=== PATIENT | female | born 1935 | race Hispanic/Latino ===

== ENCOUNTER 2017-03-24 11:35 | Inpatient (IN) | payer MEDICARE, OTHER ==
[2017-03-24 11:37] VITALS: BMI 23.4
--- NOTE | 2017-03-24 12:53 | ED PDOC ---
HPI: Trauma/Fall - HPI Time Seen by Provider: 03/24/17 11:51 Chief Complaint (Nursing): Trauma Chief Complaint (Provider): Trauma History Per: Patient History/Exam Limitations: no limitations Onset/Duration Of Symptoms: Days (x3) Additional Complaint(s): Kami Peters, 82 year old female presents to the ED after experiencing a fall 3 days prior to arrival. The patient states she got herself into the tub to take a bath then fell, being unable to get herself out. Since then she has been sitting in the tub for 3 days, and reports drinking water from the tub. She denies head trauma, neck pain, chest pain, shortness of breath, extremity pain, numbness or tingling, weakness, or any similar experiences in the past. She reports feeling mildly achy with nothing making it better or worse. Of note, the patient lives alone. PMD: Non H Provider Past Medical History Reviewed: Historical Data, Nursing Documentation, Vital Signs Vital Signs: Last Vital Signs Temp 97 F L 03/24/17 11:36 Pulse 93 H 03/24/17 11:36 Resp 18 03/24/17 11:52 BP 118/73 03/24/17 11:36 Pulse Ox 100 03/24/17 11:52 - Medical History Other PMH: uterine ca - Family History Family History: States: Unknown Family Hx - Social History Current smoker - smoking cessation education provided: No Ex-Smoker (has not smoked in the last 12 months): No Alcohol: None Drugs: Denies - Allergies Allergies/Adverse Reactions: Allergies Allergy/AdvReac Type Severity Reaction Status Date / Time No Known Allergies Allergy Verified 03/24/17 12:17 Review of Systems ROS Statement: Except As Marked, All Systems Reviewed And Found Negative Cardiovascular: Negative for: Chest Pain Respiratory: Negative for: Shortness of Breath Musculoskeletal: Positive for: Other (mildly achy feeling). Negative for: Neck Pain, Arm Pain, Leg Pain Neurological: Negative for: Weakness, Numbness (and no tingling ) Physical Exam - Reviewed Nursing Documentation Reviewed: Yes Vital Signs Reviewed: Yes - Physical Exam Appears: Positive for: No Acute Distress, Uncomfortable Head Exam: Positive for: ATRAUMATIC, NORMAL INSPECTION, NORMOCEPHALIC Eye Exam: Positive for: Normal appearance (white sclera), EOMI, PERRL Neck: Positive for: Normal, Supple (and nontender) Cardiovascular/Chest: Positive for: Regular Rate, Rhythm Respiratory: Positive for: Normal Breath Sounds (clear to auscultation bilaterally) Pelvic Exam: Positive for: External Exam Normal (pelvic stable/hips normal ) Back: Positive for: Other (back revealed multiple healing bruises ). Negative for: L CVA Tenderness, R CVA Tenderness, Vertebral Tenderness Neurologic/Psych: Positive for: Alert, discharge specialist II-XII (intact), Oriented, Cerebellar Tests (intact). Negative for: Motor/Sensory Deficits - Laboratory Results Result Diagrams: 03/24/17 13:05 03/24/17 13:05 - ECG ECG Rhythm: Positive for: Sinus Rhythm (normal), Premature Ventricular Contraction (occasional). Negative for: ST/T Changes Interpretation Of ECG: No evidence of ischemia Rate: 98 O2 Sat by Pulse Oximetry: 100 (RA) Pulse Ox Interpretation: Normal - Radiology X-Ray: Interpreted by Hi X-Ray Interpretation: No Acute Disease - Progress ED Course And Treament: elevted ck, given iv fluids no other signs of infection will admit to ms per Dr pederson, Re-evaluation Time: 14:00 Condition: Improved Medical Decision Making Medical Decision Making: Impression: Fall Plan: * ED EKG * COMP Metabolic panel * CBC (With Differential) * Partial Thromboplastin Time [COAG] * Prothrombin Time [COAG] * Sodium Chloride 0.9% 500 ml IV 500 mls/hr * Sodium Chloride 0.9% 1,000 ml IV 200 mls/hr * Urinalysis Stat * Chest One View [RAD] Stat * Reevaluation Chest X-Ray: FINDINGS: LUNGS: Clear. PLEURA: No pneumothorax or pleural fluid seen. CARDIOVASCULAR: No radiographic findings to suggest acute or significant cardiovascular disease. OSSEOUS STRUCTURES: No significant abnormalities. VISUALIZED UPPER ABDOMEN: Normal. OTHER FINDINGS: None. IMPRESSION: No active disease. Scribe Attestation: Documented by Chitra Schofield, acting as a scribe for Jaime Peck MD. Provider Scribe Attestation: All medical record entries made by the Scribe were at my direction and personally dictated by me. I have reviewed the chart and agree that the record accurately reflects my personal performance of the history, physical exam, medical decision making, and the department course for this patient. I have also personally directed, reviewed, and agree with the discharge instructions and disposition. Disposition - Clinical Impression Clinical Impression: Rhabdomyolysis - Patient ED Disposition Is Patient to be Admitted: No Counseled Patient/Family Regarding: Studies Performed, Diagnosis, Need For Followup - Disposition Disposition: Routine/Home Disposition Time: 16:02 Condition: GOOD - Pt Status Changed To: Hospital Disposition Of: Inpatient - Admit Certification Admit to Inpatient:: After my assessment, the patient will require hospitalization for at least two midnights. This is because of the severity of symptoms shown, intensity of services needed, and/or the medical risk in this patient being treated as an outpatient. - POA Present On Arrival: None
[2017-03-24] MEDS ORDERED: Sodium Chloride 0.9% 500 ML IV ONE (12:56)
[2017-03-24] MEDS ORDERED: Sodium Chloride 0.9% 1,000 ML IV SCH (13:00)
[2017-03-24 13:15] LABS: BASO % 0.7 % (0.0-2.0); EOS % 0.6 % (0.0-4.0); HEMATOCRIT 40.8 % (34.0-47.0); LYMPH # 0.8 K/uL (1.0-4.3); LYMPH % 20.7 % (20.0-40.0); MEAN CELL VOLUME 87.6 fl (81.0-99.0); MEAN CORPUSCULAR HEMOGLOBIN 28.5 pg (27.0-31.0); MEAN CORPUSCULAR HGB CONC 32.6 g/dL (33.0-37.0); MONO # 0.4 K/uL (0.0-0.8); MONO % 10.8 % (0.0-10.0); NEUT # 2.5 K/uL (1.8-7.0); NEUT % 67.2 % (50.0-75.0); NRBC % 0.2 % (0.0-0.0); RED CELL DISTRIBUTION WIDTH 21.1 % (11.5-14.5); WHITE BLOOD COUNT 3.7 K/uL (4.8-10.8)
[2017-03-24 13:29] LABS: ALB/GLOB RATIO 1.4 (1.0-2.1); CALCIUM 10.6 mg/dL (8.4-10.2); POTASSIUM 3.4 MMOL/L (3.6-5.0); TOTAL PROTEIN 7.4 G/DL (6.3-8.2)
[2017-03-24 13:56] LABS: PARTIAL THROMBOPLASTIN TIME 28.4 Seconds (25.6-37.1)
--- NOTE | 2017-03-24 14:27 | RAD ---
PROCEDURE: CHEST RADIOGRAPH, 1 VIEW. Portable study 13:20. HISTORY: trauma COMPARISON: None available. FINDINGS: LUNGS: Clear. PLEURA: No pneumothorax or pleural fluid seen. CARDIOVASCULAR: No radiographic findings to suggest acute or significant cardiovascular disease. OSSEOUS STRUCTURES: No significant abnormalities. VISUALIZED UPPER ABDOMEN: Normal. OTHER FINDINGS: None. IMPRESSION: No active disease. Concordant results with the preliminary interpretation rendered by the emergency department physician procedure.
[2017-03-24] MEDS: Sodium Chloride 0.9% 1,000 ML IV SCH ×3 (14:31→21:25)
[2017-03-24 17:29] LABS: RBC URINE 5 /hpf (0-3); URINE BACTERIA RARE (<OCC); URINE BILIRUBIN NEGATIVE (NEGATIVE); URINE BLOOD SMALL (NEGATIVE); URINE COLOR AMBER (YELLOW); URINE GLUCOSE (UA) NEG (Normal); URINE KETONE 20 mg/dL (NEGATIVE); URINE LEUKOCYTE ESTERASE TRACE Leu/uL (Negative); URINE PROTEIN >=500 mg/dL (NEGATIVE); URINE UROBILINOGEN 0.2-1.0 mg/dL (0.2-1.0); WBC URINE 17 /hpf (0-5)
[2017-03-24] MEDS ORDERED: Potassium Chloride 20 mEq ER Tab PO ONE (17:37)
[2017-03-25] MEDS: Sodium Chloride 0.9% 1,000 ML IV SCH ×5 (04:00→16:15)
[2017-03-25] MEDS: Multivitamin With Minerals Tab PO SCH (08:37)
[2017-03-25 11:24] LABS: MEAN CELL VOLUME 87.7 fl (81.0-99.0); MEAN CORPUSCULAR HEMOGLOBIN 28.7 pg (27.0-31.0); MEAN CORPUSCULAR HGB CONC 32.7 g/dL (33.0-37.0); RED CELL DISTRIBUTION WIDTH 20.9 % (11.5-14.5); WHITE BLOOD COUNT 2.8 K/uL (4.8-10.8)
[2017-03-25 11:35] LABS: CALCIUM 9.2 mg/dL (8.4-10.2); POTASSIUM 3.2 MMOL/L (3.6-5.0)
[2017-03-25] MEDS ORDERED: Potassium Chloride 20 mEq ER Tab PO ONE ×3 (12:15→12:35)
[2017-03-25] MEDS: Potassium Chl 40 mEq in D5-NS 1,000 ML IV SCH (13:51)
--- NOTE | 2017-03-25 16:18 | CP.PCM.CON ---
Addendum entered and electronically signed by China Dong MD 03/25/17 16:39 : PE: BOTTOM IRONER: AAOx3 Cranial nerves intact. Motor: 4/5 upper and lower extremities b/ l. Sensation intact. DTR: 2+ b/l upper and lower extremity. Original Note: <China Dong - Last Filed: 03/25/17 16:31> History of Present Illness - History of Present Illness History of Present Illness: Neurology Consult for Dr. Wong 82 YO F w/ PMH of Uterine CA was seen at bedside with her son. As per patient she was in the bathtub on friday taking a shower, and when she tried to get out of the tub, she was unable to do so. After trying to get out of the tub, patient states she got tired and ended up sitting down in the tub because she was tired. Denies blacking out, having chest pain, SOB, dizziness, hitting her head or neck. As per patient she was laying in the tub untill Friday when she was found by a friend. Patient states she was drinking water out of the tub, because she was thirsty. - Patient was diagnosed with Uterine cancer last year and was scheduled for her 3rd treatment of chemo today. at [facility]. - As per the son the patient is back to her baseline. She ambulates at home without any cane or walker and lives alone. Review of Systems - Review of Systems All systems: reviewed and no additional remarkable complaints except Past Patient History - Past Medical History & Family History Past Medical History?: Yes - Past Social History Smoking Status: Never Smoked - CARDIAC Hx Cardiac Disorders: Yes Hx Hypercholesterolemia: Yes Hx Hypertension: Yes - PULMONARY Hx Respiratory Disorders: No - NEUROLOGICAL Hx Neurological Disorder: No - HEENT Hx HEENT Problems: No - RENAL Hx Chronic Kidney Disease: No - ENDOCRINE/METABOLIC Hx Endocrine Disorders: No - HEMATOLOGICAL/ONCOLOGICAL Hx Cancer: Yes (uterine) - INTEGUMENTARY Hx Dermatological Problems: No - MUSCULOSKELETAL/RHEUMATOLOGICAL Hx Musculoskeletal Disorders: No Hx Falls: No (patient denies) - GASTROINTESTINAL Hx Gastrointestinal Disorders: No - GENITOURINARY/GYNECOLOGICAL Hx Genitourinary Disorders: Yes Hx Uterine Cancer: Yes - PSYCHIATRIC Hx Psychophysiologic Disorder: No Hx Substance Use: No - SURGICAL HISTORY Hx Surgeries: No - ANESTHESIA Hx Anesthesia: No Hx Anesthesia Reactions: No Hx Malignant Hyperthermia: No Has any member of the family had a problem w/ anesthesia?: No Meds Allergies/Adverse Reactions: Allergies Allergy/AdvReac Type Severity Reaction Status Date / Time No Known Allergies Allergy Verified 03/24/17 12:17 - Medications Medications: Current Medications Atorvastatin Calcium (Lipitor) 10 mg PO DAILY@2100 [facility] Last Admin: 03/24/17 20:49 Dose: 10 mg Sodium Chloride (Sodium Chloride 0.9%) 1,000 mls @ 100 mls/hr IV .Q10H [facility] Stop: 03/25/17 18:41 Last Admin: 03/25/17 05:28 Dose: Not Given Potassium Chloride/Dextrose/Sod Cl (D5-Ns1l+40meq Kcl) 1,000 mls @ 100 mls/hr IV .Q10H [facility] Stop: 03/26/17 11:48 Last Admin: 03/25/17 13:51 Dose: 100 mls/hr Ibuprofen (Motrin Oral Susp) 200 mg PO BID PRN PRN Reason: Pain, moderate (4-7) Lisinopril (Zestril) 10 mg PO DAILY [facility] Last Admin: 03/25/17 08:37 Dose: 10 mg Multivitamins/Minerals (Therapeutic-M Tab) 1 tab PO DAILY [facility] Last Admin: 03/25/17 08:37 Dose: 1 tab Potassium Chloride (K-Dur 20 Meq Er Tab) 20 meq PO DAILY [facility] Physical Exam - Constitutional Appears: No Acute Distress - Head Exam Head Exam: ATRAUMATIC, NORMAL INSPECTION, NORMOCEPHALIC - Eye Exam Eye Exam: EOMI, PERRL Pupil Exam: NORMAL ACCOMODATION, PERRL - Respiratory Exam Respiratory Exam: Clear to Auscultation Bilateral, NORMAL BREATHING PATTERN. absent: Rhonchi, Wheezes - Cardiovascular Exam Cardiovascular Exam: REGULAR RHYTHM, +S1, +S2 - GI/Abdominal Exam GI & Abdominal Exam: Normal Bowel Sounds, Soft. absent: Tenderness - Extremities Exam Extremities exam: Positive for: normal inspection. Negative for: calf tenderness - Neurological Exam Neurological exam: Alert, CN II-XII Intact, Oriented x3, Reflexes Normal - Skin Additional comments: multiple bruises noted on forearms Results - Vital Signs Recent Vital Signs: Last Vital Signs Temp 98.6 F 03/25/17 00:26 Pulse 82 03/25/17 08:37 Resp 18 03/25/17 00:26 BP 157/90 H 03/25/17 08:37 Pulse Ox 97 03/25/17 00:26 - Labs Result Diagrams: 03/25/17 11:00 03/25/17 11:00 Labs: Laboratory Results - last 24 hr 03/24/17 03/25/17 03/25/17 17:06 06:45 11:00 WBC 2.8 L RBC 4.11 Hgb 11.8 L Hct 36.0 MCV 87.7 MCH 28.7 MCHC 32.7 L RDW 20.9 H Plt Count 103 L Sodium Potassium Chloride Carbon Dioxide Anion Gap BUN Creatinine Est GFR ( Amer) Est GFR (Non-Af Amer) Random Glucose Calcium Total Creatine Kinase 360 H Urine Color [place] Urine Clarity Cloudy Urine pH 6.0 Ur Specific [place] 1.025 Urine Protein >=500 Urine Glucose (UA) Neg Urine Ketones 20 Urine Blood Small Urine Nitrate Negative Urine Bilirubin Negative Urine Urobilinogen 0.2-1.0 Ur Leukocyte Esterase Trace Urine RBC (Auto) 5 H Urine Microscopic WBC 17 H Ur Squamous Epith Cells 4 Urine Bacteria Rare 03/25/17 11:00 WBC RBC Hgb Hct MCV MCH MCHC RDW Plt Count Sodium 140 Potassium 3.2 L Chloride 107 Carbon Dioxide 27 Anion Gap 9 L BUN 25 H Creatinine 1.2 Est GFR ( Amer) 52 Est GFR (Non-Af Amer) 43 Random Glucose 84 Calcium 9.2 Total Creatine Kinase Urine Color Urine Clarity Urine pH Ur Specific [place] Urine Protein Urine Glucose (UA) Urine Ketones Urine Blood Urine Nitrate Urine Bilirubin Urine Urobilinogen Ur Leukocyte Esterase Urine RBC (Auto) Urine Microscopic WBC Ur Squamous Epith Cells Urine Bacteria Assessment & Plan - Assessment and Plan (Free Text) Assessment: 82 YO F w/ PMH of Uterine CA was admitted after being found in her tub unable to get out for 3 days. 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 Continue with current management. Pt is cleared as per neurology case has been seen and discussed with Dr. Wong. Thank your for this interesting consult. <Ramses Wong - Last Filed: 03/26/17 10:20> Meds - Medications Medications: Current Medications Atorvastatin Calcium (Lipitor) 10 mg PO DAILY@2100 [facility] Last Admin: 03/25/17 21:04 Dose: 10 mg Potassium Chloride/Dextrose/Sod Cl (D5-Ns1l+40meq Kcl) 1,000 mls @ 100 mls/hr IV .Q10H [facility] Stop: 03/26/17 11:48 Last Admin: 03/26/17 05:55 Dose: 100 mls/hr Ibuprofen (Motrin Oral Susp) 200 mg PO BID PRN PRN Reason: Pain, moderate (4-7) Lisinopril (Zestril) 10 mg PO DAILY [facility] Last Admin: 03/26/17 08:42 Dose: 10 mg Multivitamins/Minerals (Therapeutic-M Tab) 1 tab PO DAILY [facility] Last Admin: 03/26/17 08:42 Dose: 1 tab Potassium Chloride (K-Dur 20 Meq Er Tab) 20 meq PO DAILY [facility] Last Admin: 03/26/17 08:42 Dose: 20 meq Results - Vital Signs Recent Vital Signs: Last Vital Signs Temp 97.7 F 03/26/17 08:22 Pulse 67 03/26/17 08:42 Resp 20 03/26/17 08:22 BP 150/80 03/26/17 08:42 Pulse Ox 99 03/26/17 08:22 - Labs Result Diagrams: 03/26/17 06:00 03/26/17 06:00 Labs: Laboratory Results - last 24 hr 03/25/17 03/25/17 03/26/17 11:00 11:00 06:00 WBC 2.8 L 2.9 L RBC 4.11 3.87 Hgb 11.8 L 11.0 L Hct 36.0 34.9 MCV 87.7 90.2 D MCH 28.7 28.4 MCHC 32.7 L 31.5 L RDW 20.9 H 21.7 H Plt Count 103 L 82 L D Sodium 140 Potassium 3.2 L Chloride 107 Carbon Dioxide 27 Anion Gap 9 L BUN 25 H Creatinine 1.2 Est GFR ( Amer) 52 Est GFR (Non-Af Amer) 43 Random Glucose 84 Calcium 9.2 Total Bilirubin AST ALT Alkaline Phosphatase Total Creatine Kinase Total Protein Albumin Globulin Albumin/Globulin Ratio 03/26/17 06:00 WBC RBC Hgb Hct MCV MCH MCHC RDW Plt Count Sodium 142 Potassium 4.3 Chloride 114 H Carbon Dioxide 22 Anion Gap 10 BUN 20 H Creatinine 1.2 Est GFR ( Amer) 52 Est GFR (Non-Af Amer) 43 Random Glucose 83 Calcium 9.3 Total Bilirubin 0.5 AST 36 D ALT 40 Alkaline Phosphatase 60 Total Creatine Kinase 224 H Total Protein 5.8 L Albumin 3.1 L D Globulin 2.7 Albumin/Globulin Ratio 1.1 Attending/Attestation - Attestation I have personally seen and examined this patient.: Yes I have fully participated in the care of the patient.: Yes I have reviewed all pertinent clinical information: Yes
[2017-03-26] MEDS: Potassium Chl 40 mEq in D5-NS 1,000 ML IV SCH ×2 (05:00→05:55)
[2017-03-26 07:26] LABS: HEMATOCRIT 34.9 % (34.0-47.0); MEAN CELL VOLUME 90.2 fl (81.0-99.0); MEAN CORPUSCULAR HEMOGLOBIN 28.4 pg (27.0-31.0); MEAN CORPUSCULAR HGB CONC 31.5 g/dL (33.0-37.0); RED CELL DISTRIBUTION WIDTH 21.7 % (11.5-14.5); WHITE BLOOD COUNT 2.9 K/uL (4.8-10.8)
[2017-03-26 07:48] LABS: BILIRUBIN,TOTAL 0.5 mg/dl (0.2-1.3); CALCIUM 9.3 mg/dL (8.4-10.2); POTASSIUM 4.3 MMOL/L (3.6-5.0); TOTAL PROTEIN 5.8 G/DL (6.3-8.2)
[2017-03-26 08:03] LABS: ALB/GLOB RATIO 1.1 (1.0-2.1)
[2017-03-26 08:22] VITALS: RESP 20; TEMP 97.7; O2SAT 99
--- NOTE | 2017-03-26 08:29 | CP.PCM.HP ---
History of Present Illness - History of Present Illness History of Present Illness: This is an 82 y/o female admitted for elevated CPK after a fall in the bathtub. Claims that she was so weak to get up hence stayed in the tub for 2 days till she got some help. She has a hx of uterine cancer and has been on chemotherapy. Past hx HTN Hyperlipidemia Uterine cancer on chemotherapy Present on Admission - Present on Admission Any Indicators Present on Admission: No History of DVT/PE: No History of Uncontrolled Diabetes: No Urinary Catheter: No Decubitus Ulcer Present: No Review of Systems - Constitutional Constitutional: Malaise, Weight Loss Past Patient History - Past Medical History & Family History Past Medical History?: Yes - Past Social History Smoking Status: Never Smoked - CARDIAC Hx Cardiac Disorders: Yes Hx Hypercholesterolemia: Yes Hx Hypertension: Yes - PULMONARY Hx Respiratory Disorders: No - NEUROLOGICAL Hx Neurological Disorder: No - HEENT Hx HEENT Problems: No - RENAL Hx Chronic Kidney Disease: No - ENDOCRINE/METABOLIC Hx Endocrine Disorders: No - HEMATOLOGICAL/ONCOLOGICAL Hx Cancer: Yes (uterine) - INTEGUMENTARY Hx Dermatological Problems: No - MUSCULOSKELETAL/RHEUMATOLOGICAL Hx Musculoskeletal Disorders: No Hx Falls: No (patient denies) - GASTROINTESTINAL Hx Gastrointestinal Disorders: No - GENITOURINARY/GYNECOLOGICAL Hx Genitourinary Disorders: Yes Hx Uterine Cancer: Yes - PSYCHIATRIC Hx Psychophysiologic Disorder: No Hx Substance Use: No - SURGICAL HISTORY Hx Surgeries: No - ANESTHESIA Hx Anesthesia: No Hx Anesthesia Reactions: No Hx Malignant Hyperthermia: No Has any member of the family had a problem w/ anesthesia?: No Meds Allergies/Adverse Reactions: Allergies Allergy/AdvReac Type Severity Reaction Status Date / Time No Known Allergies Allergy Verified 03/24/17 12:17 Physical Exam - Constitutional Additional comments: areas of resolving ecchymoses on different areas of the extremities. - Head Exam Head Exam: NORMAL INSPECTION - ENT Exam ENT Exam: Mucous Membranes Moist - Respiratory Exam Respiratory Exam: Clear to Auscultation Bilateral - Cardiovascular Exam Cardiovascular Exam: REGULAR RHYTHM - GI/Abdominal Exam GI & Abdominal Exam: Normal Bowel Sounds - Neurological Exam Neurological exam: Alert, CN II-XII Intact - Psychiatric Exam Psychiatric exam: Normal Mood Results - Vital Signs Recent Vital Signs: Last Vital Signs Temp 97.7 F 03/26/17 08:22 Pulse 54 L 03/26/17 08:22 Resp 20 03/26/17 08:22 BP 155/83 H 03/26/17 08:22 Pulse Ox 99 03/26/17 08:22 - Labs Result Diagrams: 03/26/17 06:00 03/26/17 06:00 Labs: Laboratory Results - last 24 hr 03/25/17 03/25/17 03/26/17 11:00 11:00 06:00 WBC 2.8 L 2.9 L RBC 4.11 3.87 Hgb 11.8 L 11.0 L Hct 36.0 34.9 MCV 87.7 90.2 D MCH 28.7 28.4 MCHC 32.7 L 31.5 L RDW 20.9 H 21.7 H Plt Count 103 L 82 L D Sodium 140 Potassium 3.2 L Chloride 107 Carbon Dioxide 27 Anion Gap 9 L BUN 25 H Creatinine 1.2 Est GFR ( Amer) 52 Est GFR (Non-Af Amer) 43 Random Glucose 84 Calcium 9.2 Total Bilirubin AST ALT Alkaline Phosphatase Total Creatine Kinase Total Protein Albumin Globulin Albumin/Globulin Ratio 03/26/17 06:00 WBC RBC Hgb Hct MCV MCH MCHC RDW Plt Count Sodium 142 Potassium 4.3 Chloride 114 H Carbon Dioxide 22 Anion Gap 10 BUN 20 H Creatinine 1.2 Est GFR ( Amer) 52 Est GFR (Non-Af Amer) 43 Random Glucose 83 Calcium 9.3 Total Bilirubin 0.5 AST 36 D ALT 40 Alkaline Phosphatase 60 Total Creatine Kinase 224 H Total Protein 5.8 L Albumin 3.1 L D Globulin 2.7 Albumin/Globulin Ratio 1.1 Assessment & Plan (1) Rhabdomyolysis Status: Acute (2) Hypertension Status: Acute (3) Hyperlipidemia Status: Acute (4) Uterine cancer Status: Acute - Assessment and Plan (Free Text) Plan: monitor CPK cbc cmp hydrate pain meds cont all home meds. Neuro eval
--- NOTE | 2017-03-26 08:31 | CP.PCM.DIS ---
Provider - Provider Date of Admission: 03/24/17 14:58 Attending physician: Osbaldo Elizabeth MD Time Spent in preparation of Discharge (in minutes): 30 Hospital Course - Lab Results Lab Results: Most Recent Lab Values WBC 2.9 K/uL (4.8-10.8) L 03/26/17 06:00 RBC 3.87 Mil/uL (3.80-5.20) 03/26/17 06:00 Hgb 11.0 g/dL (12.0-16.0) L 03/26/17 06:00 Hct 34.9 % (34.0-47.0) 03/26/17 06:00 MCV 90.2 fl (81.0-99.0) D 03/26/17 06:00 MCH 28.4 pg (27.0-31.0) 03/26/17 06:00 MCHC 31.5 g/dL (33.0-37.0) L 03/26/17 06:00 RDW 21.7 % (11.5-14.5) H 03/26/17 06:00 Plt Count 82 K/uL (130-400) L D 03/26/17 06:00 MPV 8.0 fl (7.2-11.7) 03/24/17 13:05 Neut % (Auto) 67.2 % (50.0-75.0) 03/24/17 13:05 Lymph % (Auto) 20.7 % (20.0-40.0) 03/24/17 13:05 [place] % (Auto) 10.8 % (0.0-10.0) H 03/24/17 13:05 Eos % (Auto) 0.6 % (0.0-4.0) 03/24/17 13:05 Baso % (Auto) 0.7 % (0.0-2.0) 03/24/17 13:05 Neut # 2.5 K/uL (1.8-7.0) 03/24/17 13:05 Lymph # 0.8 K/uL (1.0-4.3) L 03/24/17 13:05 [place] # 0.4 K/uL (0.0-0.8) 03/24/17 13:05 Eos # 0.0 K/uL (0.0-0.7) 03/24/17 13:05 Baso # 0.0 K/uL (0.0-0.2) 03/24/17 13:05 PT 11.1 Seconds (9.8-13.1) 03/24/17 13:05 INR 1.0 (0.9-1.2) 03/24/17 13:05 APTT 28.4 Seconds (25.6-37.1) 03/24/17 13:05 Sodium 142 mmol/l (132-148) 03/26/17 06:00 Potassium 4.3 MMOL/L (3.6-5.0) 03/26/17 06:00 Chloride 114 mmol/L (98-107) H 03/26/17 06:00 Carbon Dioxide 22 mmol/L (22-30) 03/26/17 06:00 Anion Gap 10 (10-20) 03/26/17 06:00 BUN 20 mg/dl (7-17) H 03/26/17 06:00 Creatinine 1.2 mg/dL (0.7-1.2) 03/26/17 06:00 Est GFR ( Amer) 52 03/26/17 06:00 Est GFR (Non-Af Amer) 43 03/26/17 06:00 Random Glucose 83 mg/dL (65-105) 03/26/17 06:00 Calcium 9.3 mg/dL (8.4-10.2) 03/26/17 06:00 Total Bilirubin 0.5 mg/dl (0.2-1.3) 03/26/17 06:00 AST 36 U/L (14-36) D 03/26/17 06:00 ALT 40 U/L (9-52) 03/26/17 06:00 Alkaline Phosphatase 60 U/L (38-126) 03/26/17 06:00 Total Creatine Kinase 224 U/L (30-135) H 03/26/17 06:00 Total Protein 5.8 G/DL (6.3-8.2) L 03/26/17 06:00 Albumin 3.1 g/dL (3.5-5.0) L D 03/26/17 06:00 Globulin 2.7 gm/dL (2.2-3.9) 03/26/17 06:00 Albumin/Globulin Ratio 1.1 (1.0-2.1) 03/26/17 06:00 Urine Color Maryjo (YELLOW) 03/24/17 17:06 Urine Clarity Cloudy (Clear) 03/24/17 17:06 Urine pH 6.0 (5.0-8.0) 03/24/17 17:06 Ur Specific [place] 1.025 (1.003-1.030) 03/24/17 17:06 Urine Protein >=500 mg/dL (NEGATIVE) 03/24/17 17:06 Urine Glucose (UA) Neg mg/dL (Normal) 03/24/17 17:06 Urine Ketones 20 mg/dL (NEGATIVE) 03/24/17 17:06 Urine Blood Small (NEGATIVE) 03/24/17 17:06 Urine Nitrate Negative (NEGATIVE) 03/24/17 17:06 Urine Bilirubin Negative (NEGATIVE) 03/24/17 17:06 Urine Urobilinogen 0.2-1.0 mg/dL (0.2-1.0) 03/24/17 17:06 Ur Leukocyte Esterase Trace Edwin/uL (Negative) 03/24/17 17:06 Urine RBC (Auto) 5 /hpf (0-3) H 03/24/17 17:06 Urine Microscopic WBC 17 /hpf (0-5) H 03/24/17 17:06 Ur Squamous Epith Cells 4 /hpf (0-5) 03/24/17 17:06 Urine Bacteria Rare (<OCC) 03/24/17 17:06 - Hospital Course Hospital Course: This is an 82 y/o female with hx of fall and noted elevated CPK. She was also mildly dehydrated. She has a hx of uterine cancer and currently on chemotherapy at [place]. She was started on hydration and labs were monitored.CPK showed a downward trend. She remained stable and was discharged to home in stable condition. Discharge Exam - Head Exam Head Exam: ATRAUMATIC, NORMAL INSPECTION, NORMOCEPHALIC - Eye Exam Eye Exam: Normal appearance - Respiratory Exam Respiratory Exam: NORMAL BREATHING PATTERN - Cardiovascular Exam Cardiovascular Exam: REGULAR RHYTHM - GI/Abdominal Exam GI & Abdominal Exam: Normal Bowel Sounds - Neurological Exam Neurological exam: Alert, CN II-XII Intact Discharge Plan - Follow Up Plan Condition: GOOD Disposition: HOME/ ROUTINE Additional Instructions: follow up with PMD advised hydration and increase po fluids.
[2017-03-26] MEDS: Multivitamin With Minerals Tab PO SCH (08:42)
[2017-03-26 08:43] VITALS: BP 150/80; PULSE 67
--- NOTE | 2017-03-26 08:52 | PQF GENQUE ---
Dr. Elizabeth, Rhabdomyolysis ruled in or ruled out? OR; Unable to determine ER MD: to ER: after experiencing a fall 3 days [employer]:. The patient states she got herself into the tub to take a bath then fell, being unable to get herself out. Since then she has been sitting in the tub for 3 days, and reports drinking water from the tub Clinical Impression: Rhabdomyolysis Discharge summary: hx of fall and noted elevated CPK. She was also mildly dehydrated. She has a hx of uterine cancer and currently on chemotherapy at [place]. She was started on hydration and labs were monitored.CPK showed a downward tren total CK: 650->654->360->224 bun:26-.25->20 IVFs 500 ccs hr->200 ccs x 5 hrs->150 ccs x 6hr 40 min->100 ccs/hr This form is a permanent part of the medical record Clarification of your documentation is requested to better reflect the severity of illness and intensity of treatment of your patient. Indicators present [] Specify: [] [] Specify: [] [] Specify: [] [] Specify: [] Location in the medical record that reflects the above clinical findings: [] Treatment Provided: [] PHYSICIAN'S RESPONSE Based on your medical judgment of the clinical indicators outlined above please clarify the following: [] Practitioner response [] If unable to determine, please check the box, sign and date. Present On Admission (POA) Indicator: [] Present at the time of admission [] Not present at the time of admission [] Clinically Undetermined In responding to this query, please exercise your independent professional judgment. The fact that a question is asked does not imply that any particular answer is desired or expected. Thank you for your clarification on this documentation. If you have any questions please call. * Thank you, Margarita Bills RN BSN ext. #[phone] MTDD
--- NOTE | 2017-03-26 08:57 | PQF GENQUE ---
Dr. Elizabeth, Hypokalemia? OR: Disagree OR: Other explanation of clinical findings Serum Potassium:3.4->3.2->4.3 IV and oral Potassium supplement This form is a permanent part of the medical record Clarification of your documentation is requested to better reflect the severity of illness and intensity of treatment of your patient. Indicators present [] Specify: [] [] Specify: [] [] Specify: [] [] Specify: [] Location in the medical record that reflects the above clinical findings: [] Treatment Provided: [] PHYSICIAN'S RESPONSE Based on your medical judgment of the clinical indicators outlined above please clarify the following: [] Practitioner response [] If unable to determine, please check the box, sign and date. Present On Admission (POA) Indicator: [] Present at the time of admission [] Not present at the time of admission [] Clinically Undetermined In responding to this query, please exercise your independent professional judgment. The fact that a question is asked does not imply that any particular answer is desired or expected. Thank you for your clarification on this documentation. If you have any questions please call. * Thank you, Margarita Bills RN BSN ext. #[phone] MTDD
[2017-03-26] MEDS ORDERED: Potassium Chloride 20 mEq ER Tab PO SCH (09:00)
--- NOTE | 2017-03-26 15:31 | US ---
Carotid ultrasound Indication: ? fall, inability to get out of tub Technique: Grayscale, color, and duplex Doppler imaging of the bilateral carotid and vertebral arteries. Findings: Bilateral calcified plaque evident within the carotid bulbs. Peak systolic velocities are as follows (cm/sec) Right: CCA - proximal 74.2 CCA - mid 36.7 CCA- distal 46.2 ECA 48.1 ICA - proximal 36.7 ICA - mid 41.5 ICA - distal 66.9 Vertebral- antegrade 39.2 ICA/CCA- 0.9 Left: CCA - proximal 59.0 CCA - mid 54.0 CCA- distal 49.0 ECA 45.5 ICA - proximal 49.3 ICA - mid 59.4 ICA - distal 58.1 Vertebral- antegrade 55.6 ICA/CCA- 1.0 Impression: No evidence of hemodynamically significant stenosis. Measurement of carotid stenosis is based on velocity parameters that correlate measurement of carotid stenosis is based on velocity parameters that correlate the residual internal carotid diameter with that of the more distal vessel in accordance with the [place] symptomatic carotid endarterectomy Trial (NASCET).
--- NOTE | 2017-03-26 16:00 | RAD ---
PROCEDURE: Bilateral Knee Radiographs. HISTORY: knee pain COMPARISON: None available. FINDINGS: BONES: Right Knee: Osseous demineralization. No acute displaced fracture. Left Knee: Osseous demineralization. No acute displaced fracture. JOINTS: Right Knee: No dislocation. Joint space narrowing most prominent medially. Left knee: No dislocation. Joint space narrowing most prominent medially. SOFT TISSUES: Right Knee: Unremarkable. No evidence of radiopaque foreign body. Dense vascular calcifications. Left Knee: Unremarkable. No evidence of radiopaque foreign body. Dense vascular calcifications. JOINT EFFUSION: Right Knee: Small suprapatellar joint effusion. Left Knee: Trace suprapatellar joint effusion. OTHER FINDINGS: None. IMPRESSION: Diffuse osseous demineralization. Degenerative changes bilaterally as above. Small right and trace left suprapatellar joint effusions. No acute displaced fracture or dislocation identified.
--- NOTE | 2017-03-26 18:29 | CARD ---
APPROVED REPORT EKG Measurement Heart [id number] [id number] <Conclusion> Sinus rhythm with occasional premature ventricular complexes and premature atrial complexes Otherwise normal ECG
== END 2017-03-26 12:50 | disposition home health service (06) | DRG 566 ==
LOC: H.ER 11:35 → H.ERHOLD 14:58 → H.MEDSURG1 17:53
PROVIDERS: ADMIT Family Medicine; ATTEND Family Medicine
DX: T79.6XXA Traumatic ischemia of muscle, initial encounter (principal); G62.9 Polyneuropathy, unspecified; C55 Malignant neoplasm of uterus, part unspecified; E86.0 Dehydration; E87.6 Hypokalemia; I10 Essential (primary) hypertension; E78.5 Hyperlipidemia, unspecified; I95.1 Orthostatic hypotension; E78.00 Pure hypercholesterolemia, unspecified; W16.212A Fall in (into) filled bathtub causing other injury, initial encounter; Z87.891 Personal history of nicotine dependence; Y92.002 Bathroom of unspecified non-institutional (private) residence as the place of occurrence of the external cause